=== PATIENT | female | born 1955 | race Caucasian/White ===

== ENCOUNTER 2018-07-12 05:20 | Emergency (ER) | payer MEDICAID ==
[~2018-07-12] VITALS: Ht 154.9 cm; Wt 54.5 kg
[2018-07-12 05:33] VITALS: Ht 154.9 cm; Wt 54.5 kg
[2018-07-12] MEDS ORDERED: ZANAFLEX4 MG PO (05:46)
[2018-07-12] MEDS ORDERED: VENTOLIN HFA18 GM IH (05:46)
[2018-07-12] MEDS ORDERED: BENTYL 20 MG TA20 MG PO (05:46)
[2018-07-12] MEDS ORDERED: OMEPRAZOLE20 M1 PO (05:46)
[2018-07-12] MEDS ORDERED: ZYRTEC10 MG PO (05:47)
[2018-07-12] MEDS ORDERED: FISH OIL 1,0001 CA1 PO (05:47)
[2018-07-12] MEDS ORDERED: PEPCID20 MG PO (05:47)
[2018-07-12] MEDS ORDERED: SINGULAIR10 MG PO (05:48)
[2018-07-12] MEDS ORDERED: TRICOR48 MG PO (05:48)
[2018-07-12] MEDS ORDERED: CYMBALTA60 MG (05:48)
[2018-07-12] MEDS ORDERED: CALCIUM 600 +1 EAC3 PO (05:48)
[2018-07-12] MEDS ORDERED: ANORO ELLIPTA1 EACH (05:49)
[2018-07-12] MEDS ORDERED: ZETIA10 MG PO (05:49)
[2018-07-12] MEDS ORDERED: MOBIC7.5 MG (05:49)
[2018-07-12] MEDS ORDERED: NEURONTIN 300300 MG PO (05:49)
[2018-07-12] MEDS ORDERED: FLOVENT DI50 MCG/DIS (05:50)
[2018-07-12 06:26] LABS: BASOPHILS 0.2 % (0-2); EOSINOPHILS 0.5 % (0-7); HEMATOCRIT 41.1 % (36.0-48.0); HEMOGLOBIN 13.6 g/dL (12-16); IMMATURE GRANULOCYTES 0.1 % (0-5); LYMPHOCYTES 8.1 % (15-50); MCH 28.1 pg (26.0-34.0); MCHC 33.1 g/dL (31.0-37.0); MCV 84.9 fL (80.0-100.0); MEAN PLATELET VOLUME 11.7 fL (7.4-10.4); NEUTROPHILS 85.1 % (40-80); PLATELET COUNT 180 10x3/uL (130-400); RBC 4.84 10x6/uL (4.00-5.40); RDW 12.8 % (11.5-14.5); WBC 9.4 10x3/uL (4.8-10.8)
[2018-07-12 06:48] LABS: ALBUMIN 3.7 g/dL (3.4-5.0); ANION GAP 12.2 mmol/L (8-16); BILIRUBIN - TOTAL 0.33 mg/dL (0.2-1.3); CALCIUM 9.3 mg/dL (8.5-10.1); CARBON DIOXIDE 27.5 mmol/L (21.0-32.0); CREATININE - SERUM 0.9 mg/dL (0.6-1.3); POTASSIUM - SERUM 3.7 mmol/L (3.5-5.1); PROTEIN - SERUM 7.2 g/dL (6.4-8.2)
[2018-07-12 06:58] LABS: AMORPHOUS SEDIMENT >1+ /lpf (NONE SEEN); APPEARANCE SL CLDY (CLEAR); BACTERIA MODERATE /hpf (NONE SEEN); BILIRUBIN NEGATIVE (NEGATIVE); COLOR YELLOW (YELLOW); EPITHELIAL CELLS OCC /hpf (0-5); GLUCOSE NEGATIVE (NEGATIVE); KETONE NEGATIVE (NEGATIVE); MUCUS <1+ /lpf (NONE SEEN); NITRITE NEGATIVE (NEGATIVE); PROTEIN NEGATIVE (NEGATIVE); SPECIFIC GRAVITY 1.005 (1.005-1.020); UROBILINOGEN NORMAL (NORMAL)
[2018-07-12] MEDS ORDERED: MACROBID100 MG PO (09:44)
[2018-07-12] MEDS ORDERED: KEFLEX500 MG PO (09:44)
[2018-07-12] MEDS ORDERED: FLOMAX0.4 MG PO (09:44)
[2018-07-12 10:16] VITALS: BP 126/84
[2018-08-22 09:00] VITALS: Ht 154.9 cm; Wt 54.5 kg
== END 2018-07-12 10:38 | disposition home or self-care (01) ==
LOC: D.ER 05:20
PROVIDERS: Emergency Medicine
DX: R10.12 Left upper quadrant pain (principal); N23 Unspecified renal colic; N20.1 Calculus of ureter; N39.0 Urinary tract infection, site not specified; R11.2 Nausea with vomiting, unspecified; I10 Essential (primary) hypertension; J44.9 Chronic obstructive pulmonary disease, unspecified; K21.9 Gastro-esophageal reflux disease without esophagitis

== ENCOUNTER 2018-08-22 08:15 | Day surgery (SDC) | payer MEDICAID ==
[2018-08-18 11:09] LABS: HEMATOCRIT 34.6 % (36.0-48.0); MCHC 31.8 g/dL (31.0-37.0); MCV 84.8 fL (80.0-100.0); MEAN PLATELET VOLUME 10.6 fL (7.4-10.4); RBC 4.08 10x6/uL (4.00-5.40); RDW 12.3 % (11.5-14.5)
[~2018-08-22] VITALS: Ht 152.4 cm; Wt 57.2 kg
--- NOTE | ~2018-08-22 | OP ---
PATIENT NAME: ERI ZIEGLER MEDICAL RECORD: [id number] :59 LOCATION:.[facility] ADMISSION DATE: SURGEON: SUZE CHAVARRIA MD DATE OF OPERATION: 08/22/2018 SURGEON: Suze Chavarria MD ANESTHESIA: General anesthesia by Wciho Casiano CRNA. DIAGNOSIS: History of left 4 mm distal ureteral stone. PROCEDURE: Cystoscopy, left retrograde pyelogram, left ureteroscopy, left ureteral stent insertion. FINDINGS: No radiodense stone seen on fluoroscopy. On retrograde pyelogram, no filling defects and no hydronephrosis. With ureteroscopy, no stone seen. BLOOD LOSS: None. CLINICAL HISTORY: This is a 62-year-old female who was referred by the Emergency Room with left flank pain. CT scan shows a left distal ureteral 4 mm stone. She has no previous history of kidney stones. This CT scan was done in June in the middle of the month. She continues to have episodes of pain. She does not recall seeing the stone pass out. She comes today for a left ureteroscopy and stone removal. SHE IS ALLERGIC TO KEFLEX, ESTRADIOL, BACTRIM AND PENICILLIN. 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 Prior to putting her to sleep, I wanted to obtain fluoroscopy on C-arm to see if the stone could be seen at all. When we perform fluoroscopy, no visible stone was present that was radiodense. Upon questioning, the patient said she was still having episodes of pain on the left flank and therefore, she wanted this to proceed with the ureteroscopy. DESCRIPTION OF PROCEDURE: She was then put to sleep and we put her legs in dorsal lithotomy position. She was then prepped and draped. A 21-Micronesian cystoscope with 30-degree lens was used for visualization. The patient has single ureteral orifices on each side. No bladder tumors were seen. A retrograde pyelogram was obtained by inserting a 5-Micronesian open-ended ureteral catheter into the left ureteral orifice. Diluted contrast was injected. This was followed all the way up to the renal pelvis and the calices. I did not see any signs of filling defect or hydronephrosis. Nevertheless, I decided to proceed with ureteroscopy to be absolutely sure that the stone was gone. Through the lumen of the ureteral catheter, we inserted a Sensor wire up to the renal pelvis level. Once the wire was in position, the ureteral catheter was removed entirely. Over the Sensor wire, we inserted a UroMax 18-Micronesian x 4 cm long ureteral dilation balloon. The left ureteral orifice was dilated with 12 atmospheres of pressure for a few seconds and then the balloon was deflated and removed entirely. The cystoscope was then removed, leaving the wire in place. The wire was clamped to the drapes. The rigid ureteroscope was used. Visualizing from the ureterovesical junction all the way to the UP junction, no stone was seen. She must have passed her stone recently. At this point, the ureteroscope was removed and the wire was backloaded onto the cystoscope. Over the wire, we inserted the 6-Micronesian x 22 cm ureteral stent. Once the stent was in correct position, the wire was withdrawn entirely. The distal end of the stent was pushed into the bladder using a pusher. The bladder was then emptied through the scope sheath and then the scope was removed. The string on the OPERATIVE REPORT [id number] KARLIEERIPAO MASON distal end of the scope was maintained. It was taped to the suprapubic area with a piece of Tegaderm. I will see her in followup on Tuesday to remove the stent by pulling on the string. TRANSINT:[id number] Voice Confirmation ID: [id number] DOCUMENT ID: [id number] SUZE CHAVARRIA MD at 0840 CC: [id number] DICTATION DATE: 08/22/18 1650 ANNEALING TORCH OPERATOR: 08/22/[address] [facility] [address] [place] [address]
[~2018-08-22 08:15] MED LIST: ANORO ELLIPTA1 EACH; BENTYL 20 MG TA20 MG PO; CALCIUM 600 +1 EAC3 PO; CYMBALTA60 MG; FISH OIL 1,0001 CA1 PO; FLOMAX0.4 MG PO; FLOVENT DI50 MCG/DIS; KEFLEX500 MG PO; MACROBID100 MG PO; MOBIC7.5 MG; NEURONTIN 300300 MG PO; OMEPRAZOLE20 M1 PO; PEPCID20 MG PO; SINGULAIR10 MG PO; TRICOR48 MG PO; VENTOLIN HFA18 GM IH; ZANAFLEX4 MG PO; ZETIA10 MG PO; ZYRTEC10 MG PO
[2018-08-22] MEDS ORDERED: MOBIC7.5 MG PO (08:41)
[2018-08-22] MEDS ORDERED: FLUTICASONE PRO16 GM NASAL (08:42)
[2018-08-22] MEDS ORDERED: MULTI-DAY VITAM1 TAB PO (08:44)
[2018-08-22] MEDS ORDERED: HYDROCODON-ACE1 EAC7 PO (08:45)
[2018-08-22] MEDS ORDERED: TORADOL10 MG PO (08:47)
[2018-08-22 09:00] VITALS: Ht 152.4 cm; Wt 57.2 kg
== END 2018-08-22 18:20 | disposition home or self-care (01) ==
LOC: D.OPS 08:15
PROVIDERS: Anesthesiology
DX: N20.1 Calculus of ureter (principal); Z88.1 Allergy status to other antibiotic agents; Z88.0 Allergy status to penicillin; Z88.2 Allergy status to sulfonamides; Z01.812 Encounter for preprocedural laboratory examination

== ENCOUNTER → 2018-11-07 17:58 | Outpatient (CLI) | payer MEDICAID ==
[2018-08-22 09:00] VITALS: BMI 24.6
[~2018-11-07 17:58] MED LIST changes: +FLUTICASONE PRO16 GM NASAL; +HYDROCODON-ACE1 EAC7 PO; +MOBIC7.5 MG PO; +MULTI-DAY VITAM1 TAB PO; +TORADOL10 MG PO
== END | disposition home or self-care (01) ==
LOC: D.MAMMO 15:30
DX: Z12.31 Encounter for screening mammogram for malignant neoplasm of breast (principal)

== ENCOUNTER → 2019-04-02 10:33 | Outpatient (CLI) | payer MEDICAID ==
[2018-08-22 09:00] VITALS: BMI 24.6
== END | disposition home or self-care (01) ==
LOC: D.RAD 10:33
PROVIDERS: ATTEND Internal Medicine Gastroenterology
DX: K21.9 Gastro-esophageal reflux disease without esophagitis (principal)

== ENCOUNTER 2019-05-08 08:38 | Outpatient (CLI) | payer MEDICAID ==
[2018-08-22 09:00] VITALS: BMI 24.6
== END 2019-05-08 10:05 | disposition home or self-care (01) ==
LOC: D.OPS 08:38
PROVIDERS: ATTEND Surgery
DX: K21.9 Gastro-esophageal reflux disease without esophagitis (principal)

== ENCOUNTER 2019-05-30 06:32 | Day surgery (SDC) | payer MEDICAID ==
[~2019-05-30] VITALS: Ht 154.9 cm; Wt 55.9 kg
--- NOTE | ~2019-05-30 | OP ---
PATIENT NAME: ERI ZIEGLER MEDICAL RECORD: [id number] :59 LOCATION:[facility] ADMISSION DATE: SURGEON: SUZE WOODARD MD DATE OF OPERATION: 05/30/2019 Assistance Note I assisted Dr. TRAVON Paulson with the laparoscopic hiatal hernia repair and laparoscopic Andrew fundoplication. I was present from the initial insertion of trocar and instruments as well as the final closure. My involvement in the operation included, but was not limited to, insertion of the Veress needle and insufflation of the abdomen. Insertion of two of the trocars. Assistance with the Gary retractor. Taking down the short gastrics with the Harmonic scalpel. Irrigating and aspirating. Some retrogastric dissection. Retracting the esophagus. Some blunt dissection up in the mediastinum. Suture retraction. Running some of the camera. Final closure of several of the trocar sites. The complexity of the procedure necessitated having two attending surgeons present during the procedure. TRANSINT:[id number] Voice Confirmation ID: [id number] DOCUMENT ID: [id number] SUZE WOODARD MD CC: [id number] DICTATION DATE: 05/30/191816 ASTRONOMY INSTRUCTOR: 05/30/19 221 [facility] SDC 05/31/19 [facility] [address] [place] [id number]
[~2019-05-30 06:32] MED LIST changes: +IPRATROPIUM SPR 0.0 NASAL; +NASACORT10.8 ML NASAL
[2019-05-30 06:59] LABS: HEMATOCRIT 38.6 % (36.0-48.0); HEMOGLOBIN 12.3 g/dL (12-16); MCH 25.7 pg (26.0-34.0); MCHC 31.9 g/dL (31.0-37.0); MCV 80.8 fL (80.0-100.0); MEAN PLATELET VOLUME 12.5 fL (7.4-10.4); RBC 4.78 10x6/uL (4.00-5.40); RDW 14.9 % (11.5-14.5); WBC 3.7 10x3/uL (4.8-10.8)
[2019-05-30] MEDS ORDERED: IPRATROPIUM SPR 0.0 (07:26)
[2019-05-30] MEDS ORDERED: CARBINOXAMIN (07:27)
[2019-05-30 07:29] VITALS: BP 140/71; BMI 23.4
[2019-05-30 11:29] VITALS: BP 130/90
--- NOTE | 2019-05-30 15:49 | NUR ---
PT LYING IN BED DAUGHTER AND GRANDCHILDREN AT BEDSIDE, PT LAP SITES ARE CLEAN DRY AND INTACT. NO NEEDS VOICED, CONTINUE WITH PLAN OF CARE
--- NOTE | 2019-05-30 16:14 | NUR ---
PT INQUIRED ON PAIN MEDICATION FOR HER NECK WHICH SHE TAKES NORCO 5 AT HOME WELL HER ZANAFLEX. ADVISED PT MED REC HAS BEEN COMPLETED AND WHEN DR WOODARD MAKES ROUNDS THIS EVENING WE WILL INQUIRE ON RESTARTING HOME MEDS, NO OTHER NEEDS VOICED
[2019-05-30 16:30] VITALS: BP 130/90; Ht 154.9 cm; Wt 55.9 kg
[2019-05-30 20:00] VITALS: BP 117/63
--- NOTE | 2019-05-30 20:00 | NUR ---
ASSESSMENT PER FLOWSHEET. LAP SITES TO ABDOMEN X6 C/D/I. IV PATENT LT HAND OF D5KR W/10MEQ KCL AT 125CC'S/HR. SITE CLEAR SENIOR MICROSOFT CONSULTANT OF MORPHINE IN USE WITH SETTINGS AT 1MG Q10MIN W/10MG Q4H L/O. DAUGHTER IN ROOM. [place] TO BEDSIDE DRAINAGE.
--- NOTE | 2019-05-30 22:00 | NUR ---
MEDS GIVEN PER JAN. REQUESTING MED FOR BREAKTHROUGH PAIN AND MUSCLE RELAXOR. TORADOL 30MG IVP GIVEN FOR PAIN AND ZANAFLEX 4MG PO GIVEN FOR SPASMS.
--- NOTE | 2019-05-31 | NUR ---
RESTING QUIETLY DENIES NEEDS. SR UP X2 CALL LIGHT WITHIN REACH.
--- NOTE | 2019-05-31 02:21 | NUR ---
EYES CLOSED RESPIRATIONS WITH EASE AND UNLABORED.
[2019-05-31 04:00] VITALS: BP 134/67
--- NOTE | 2019-05-31 04:15 | NUR ---
AMBULATED WITH 2 PEOPLE IN HALLWAY WALLED AROUND NURSE'S STATION.
--- NOTE | 2019-05-31 06:37 | NUR ---
RESTING QUIETLY. MEDS GIVEN PER JAN.
[2019-05-31 06:49] LABS: BASOPHILS 0.4 % (0-2); EOSINOPHILS 2.7 % (0-7); HEMATOCRIT 36.8 % (36.0-48.0); HEMOGLOBIN 11.4 g/dL (12-16); IMMATURE GRANULOCYTES 0.2 % (0-5); LYMPHOCYTES 20.6 % (15-50); MCH 25.4 pg (26.0-34.0); MEAN PLATELET VOLUME 12.5 fL (7.4-10.4); MONOCYTES 9.4 % (2-11); NEUTROPHILS 66.7 % (40-80); PLATELET COUNT 155 10x3/uL (130-400); RBC 4.49 10x6/uL (4.00-5.40); RDW 15.1 % (11.5-14.5)
[2019-05-31 06:53] LABS: ALKALINE PHOSPHATASE 55 U/L (46-116); ALT (SGPT) 63 U/L (10-68); CALC OSMOLALITY 278 mosm/kg (275-300); CALCIUM 8.5 mg/dL (8.5-10.1); CARBON DIOXIDE 28.8 mmol/L (21.0-32.0); CHLORIDE - SERUM 107 mmol/L (98-107); CREATININE - SERUM 0.7 mg/dL (0.6-1.3); GLUCOSE 115 mg/dL (74-106); POTASSIUM - SERUM 4.4 mmol/L (3.5-5.1); PROTEIN - SERUM 6.2 g/dL (6.4-8.2); SODIUM 141 mmol/L (136-145); UREA NITROGEN 5 mg/dL (7-18); eGFR NON AFRICAN AMERICAN 90 mL/min (90-120)
[2019-05-31 06:56] LABS: WBC 4.8 10x3/uL (4.8-10.8)
--- NOTE | 2019-05-31 07:58 | NUR ---
PT HAS C/O DUNAWAY ALL NOGHT PAIN AT AN 8, WAS ADVISED BY PM NURSE SHE DOES NOT HAVE ANYTHING FOR DUNAWAY BUT JUST TORADOL, ORDERED TYLENOL FOR PT Q6 PRN AND ADMINISTERED THIS MORNING AFTER ROUNDS, PT TO BE DC TODAY AFTER GASTOGRAFIN SWALLLOW STUDY. PULLING [place] TO ENSURE PT ABLE TO VOID BEFORE DC. CONTINUE WITH PLAN OF CARE
[2019-05-31 08:47] VITALS: BP 112/54
[2019-05-31] MEDS ORDERED: HYDROCODON-ACE1 EAC7 PO (11:09)
== END 2019-05-31 12:30 | disposition home or self-care (01) ==
LOC: D.OPS 06:32 → D.MS 10:39 → D.OPS 12:00
PROVIDERS: Anesthesiology; Surgery; ATTEND Surgery
DX: K21.9 Gastro-esophageal reflux disease without esophagitis (principal); K44.9 Diaphragmatic hernia without obstruction or gangrene

== ENCOUNTER 2019-12-09 17:48 | Observation (INO) | payer BC ==
--- NOTE | ~2019-12-09 | HEMODYNAMI ---
PATIENT:ERI ZIEGLER MEDICAL RECORD: [id number] : 59 [facility] ADMISSION DATE: 12/09/19 Generatedon:12/10/201911:04 Patient name: ERI ZIEGLER Patient #: [id number] SSN: : 1955 Date of study: 12/10/2019 Page: Of Hemodynamic Procedure Report Patient Data Patient Demographics Procedure consent was obtained First Name: ERI Gender: Female Last Name: KARLIE : 1955 Middle Initial: MARLON Age: 64 year(s) Patient #: [id number] Race: Unknown Additional ID: [id number] Contact details [address]: [address] [place] [address] [place] State: [place] City: [place] Zip code: [address] Past Medical History Allergies Allergen Reaction Date Comments Reported Other 12/10/2019 cephalaxin,pcn,stradiol, allergy sulfa, trimethoprim Admission Admission Data Admission Date: 12/09/2019 Admission Time: 20:41 Arrival Date: 12/10/2019 Arrival Time: 0:00 Admit Source: Other Insurance Payor: Private Room #: D.[id number] health insurance Height (in.): 61 BSA: 1.47 (m2) Height (cm.): 154.94 BMI: 20.78 (kg/m2) Weight (lbs.): 110 Weight (kg.): 49.9 Lab Results Lab Result Date: 12/10/2019 Lab Result Time: 0:00 Biochemistry Name Units Result Min Max BUN mg/dl 11 --(-*--)-- 7 18 CK-MB ng/ml 0.9 --(*---)-- 0 3.6 Creatinine mg/dl 0.9 --(-*--)-- 0.6 1.3 eGFR ml/min 67.41361 *-(----)-- 90 120 NONAFRICAN Troponin l ng/ml 0.017 --(-*--)-- 0 0.06 CBC Name Units Result Min Max Hematocrit % 47.6 --(-*--)-- 42 54 Hemoglobin g/dl 15.4 --(-*--)-- 13.5 17.5 Procedure Procedure Types Cath Procedure Diagnostic Procedure [facility] w/Coronaries Procedure Description Procedure Date Procedure Date: 12/10/2019 Procedure Start Time: 10:53 Procedure End Time: 11:03 Procedure Staff Name Function Chuck Mckenna MD Performing Physician Sybil Oakley RT Monitor Latosha Rosario RN Nurse India Jennings RT Scrub Indication Chest pain Procedure Data Cath Procedure Fluoroscopy Diagnostic fluoroscopy Total fluoroscopy Time: 0.9 time: 0.9 min min Diagnostic fluoroscopy Total fluoroscopy dose: 106 dose: 106 mGy mGy Contrast Material Contrast Material Type Amount (ml) Isovue 370 36 Entry Location Entry Primary Successful Side Size Upsize Upsize Entry Closure Succes sful Closure Location (Fr) 1 (Fr) 2 (Fr) Remarks Device Remarks Femoral Right 5 Fr Exoseal artery Estimated blood loss: 5 ml Diagnostic catheters Device Type Used For End Catheter Placement MULTIPACK JL 4.0 5Fr Procedure catheter MULTIPACK 3DRC 5Fr Procedure catheter MULTIPACK Pigtail 5 Fr Procedure catheter Procedure Complications No complications Procedure Medications Medication Administration Route Dosage 0.9% NaCl I.V. 100 ml/hr Oxygen etCO2 Nasal cannula 2 l/min Lidocaine 2% added to field 20 Heparin Flush Bag added to field 2 bags (1000units/500ml NS) Versed I.V. 2 mg Fentanyl I.V. 50 mcg Fentanyl I.V. 50 mcg Hemodynamics Rest BSA: 1.47 (m2) HGB: 15.4 (g/dl) O2 Consumption: Estimated: 154.7 (ml/min) O2 Con sumption indexed: Estimated:105.24 (ml/min/m) Heart Rate: 99 (bpm) Pressure Samples Time Site Value (mmHg) Purpose Heart Use Rate(bpm) 10:57 LV 110/7,8 Snapshot 58 Gradients Valve Time Site Site Mean SEP/DFP Peak To Heart Use 1 2 (mmHg) (sec/min) Peak Rate (mmHg) (bpm) Aortic 10:58 LV AO 114 Snapshots Pre Cath Intra NCS Post Cath Vital Signs Time Heart Resp SPO2 etCO2 NIBP (mmHg) Rhythm Pain Sedation Rate (ipm) (%) (mmHg) Status Level (bpm) 10:19:33 99 11 100 28 135/81(106) NSR 0 (11) 10(A) , No pain 10:23:43 100 12 100 31.8 125/79(111) NSR 0 (11) 10(A) , No pain 10:27:51 95 11 100 40.1 125/76(93) NSR 0 (11) 10(A) , No pain 10:31:59 100 11 100 40.9 134/71(96) NSR 0 (11) 10(A) , No pain 10:36:11 103 10 97 17 113/70(90) ST 0 (11) 10(A) , No pain 10:40:17 101 10 97 31 116/67(100) ST 0 (11) 10(A) , No pain 10:44:22 104 13 97 45.4 112/69(87) ST 0 (11) 10(A) , No pain 10:48:28 102 12 97 37.1 121/69(95) ST 0 (11) 10(A) , No pain 10:52:36 103 10 98 28.7 113/70(87) ST 0 (11) 10(A) , No pain 10:56:42 111 16 99 44.6 123/66(86) ST 0 (11) 10(A) , No pain 11:00:52 108 10 98 38.6 112/66(87) ST 0 (11) 10(A) , No pain Medications Time Medication Route Dose Verified Delivered Reason Notes Eff ectiveness by by 10:32:37 0.9% NaCl I.V. 100 Chuck Reina used for ml/hr ClarisaJackson Rosario procedure MD LUONG 10:32:43 Oxygen etCO2 2 Chuck Cotoa used for Nasal l/min [facility] procedure cannula MD LUONG 10:32:48 Lidocaine 2% added 20ml Chuck Woods for local to vial [facility] anesthetic field MD MONTIEL 10:32:52 Heparin Flush added 2 Chuck Woods used for Bag to bags [facility] procedure (1000units/500ml field MD MONTIEL NS) 10:49:02 Fentanyl I.V. 50 Chuck Cotoa for mcg [place] [facility] sedation MD LUONG 10:49:53 Versed I.V. 2 mg Chuck C[address]a for [facility] Ros[facility] sedation MD RN 10:53:58 Fentanyl I.V. 50 Chuck Reina for [facility] Rosario sedation cancer program director Log Time Note 10:06:53 Diagnostic Cath Status : Urgent 10:07:12 Indication : Chest pain 10:07:18 Procedure Status Urgent Heart Cath (IP). 10:07:21 India Jennings RT(R) sent for patient. Start room use. 10:07:23 Time tracking: Regular hours (M-F 7:00 - 5:00) 10:07:28 Plan of Care:Hemodynamics will remain stable., Cardiac rhythm will remain stable., Comfort level will be maintained., Respiratory function will remain adequate., Patient/ family verbilizes understanding of procedure., Procedure tolerated without complication., Recovers from procedure without complications.. 10:07:39 ACC Patient presents with Stable Angina CCS Anginal Class 2--Slight limitation of ordinary activity. 10:12:18 Patient received from Med II to CCL 2 Alert and oriented. Tansferred to table in Supine position. 10:12:21 Signed procedure consent form obtained from patient. 10:12:22 Warm blankets applied, and india hugger turned on for patient comfort. 10:12:22 Correct patient and procedure confirmed by team. 10:12:23 ECG and BP/O2 sat monitors applied to patient. 10:12:39 Family in waiting room. 10:12:41 Patient NPO since Midnight. 10:12:42 Pre-procedure instructions explained to patient. 10:12:43 Pre-op teaching completed and patient verbalized understanding. 10:13:28 Patient allergic to Other allergycephalaxin,pcn,stradiol, sulfa, trimethoprim 10:13:32 Is the patient allergic to Iodine/contrast media? No. 10:16:26 Arrival Date: 12/10/2019 12:00:00 AM 10:16:27 Admit Source: Other 10:16:29 Insurance Payor : Private health insurance 10:16:49 Patient Height : 61 inches 10:16:54 Patient Weight : 110 lbs 10:18:17 Risk of Mortality: 0.6 10:18:20 Risk of blood transfusion: 4.4 10:18:24 Risk of JENNIFER: 3.6 10:18:25 Alarms reviewed by R. N. 10:18:26 Sharps counted by scrub and verified by R.N. 10:18:29 Vital chart was started 10:18:35 Was the patient premedicated? Yes 10:18:37 Is patient on blood thinner?No 10:18:42 Patient diabetic? No. 10:18:46 Patient not . Patient is over age 55. 10:18:46 ----Pre-sedation anethsthesia assessment.---- 10:18:50 Previous problem with sedation/anesthesia? No ? 10:18:52 Snore? Yes 10:18:53 Sleep apnea? Yes 10:18:55 Deviated septum? No 10:18:56 Opens mouth fully? Yes 10:18:57 Sticks out tongue? Yes 10:19:07 Airway obstruction? Yes asthma, bronchitis 10:19:10 Dentures? No ? 10:19:19 Pre procedure: right dorsailis pedis pulse 2+ Normal; easily identifiable; not easily obliterated 10:19:22 Patient pain scale 0/10 ?. 10:19:41 IV patent on arrival in left antecubital with 0.9% NaCl at [facility]. 10:20:59 Lab Result : BUN 11 mg/dl 10:20:59 Lab Result : Creatinine 0.9 mg/dl 10:20:59 Lab Result : CK-MB 0.9 ng/ml 10:20:59 Lab Result : Troponin l 0.017 ng/ml 10:20:59 Lab Result : eGFR NONAFRICAN 67.58286 ml/min 10:20:59 Lab Result : Hemoglobin 15.4 g/dl 10:20:59 Lab Result : Hematocrit 47.6 % 10:21:04 Modified Lenny's test Ulnar < 7 seconds 10:21:09 Lab results completed and on chart. 10:21:13 Stress Test: no; N/A ? 10:21:17 Right Radial & Right Groin area was prepped with chlora-prep and draped in sterile fashion 10:21:22 Baseline sample Acquired. 10:21:26 Rhythm: sinus rhythm 10:21:27 Full Disclosure recording started 10:21:34 Use device set Radial Dx or PCI 10:21:36 ACIST Syringe (50654) opened to sterile field. 10:21:37 Medline Cath Pack ([id number]) opened to sterile field. 10:21:38 Bag Decanter () opened to sterile field. 10:21:38 ACIST Hand Control (86792) opened to sterile field. 10:21:39 ACIST Manifold (66603) opened to sterile field. 10:21:42 EMERALD Guide Wire (828-700) opened to sterile field. 10:32:37 0.9% NaCl 100 ml/hr I.V. was administered by Latosha Rosario RN; used for procedure; Verbal order read back and verified. 10:32:43 Oxygen 2 l/min etCO2 Nasal cannula was administered by Latosha Rosario RN; used for procedure; Verbal order read back and verified. 10:32:48 Lidocaine 2% 20ml vial added to field was administered by Chuck Mckenna MD; for local anesthetic; Verbal order read back and verified. 10:32:52 Heparin Flush Bag (1000units/500ml NS) 2 bags added to field was administered by Chuck Mckenna MD; used for procedure; Verbal order read back and verified. 10:38:57 Zero performed for pressure channel P1 10:40:24 Zero performed for pressure channel P1 10:48:59 --------ALL STOP TIME OUT------ 10:49:00 Final Timeout: patient, procedure, and site verified with staff and physician. All members of the team are in agreement. 10:49:02 Fentanyl 50 mcg I.V. was administered by Latosha Rosario RN; for sedation; Verbal order read back and verified. 10:49:11 Right Radial & Right Groin site verified by team. 10:49:15 Fire Safety Assessment: A--An alcohol-based skin anteseptic being used preoperatively., C--Open oxygen or nitrous oxide is being used., D--An ESU, laser, or fiber-optic light is being used. 10:49:19 Physical assessment completed. ASA score P 2 - A patient with mild systemic disease as per Chuck Mckenna MD. 10:49:22 2) 60-89 Mildly reduced kidney function, and other findings (as for stage 1) point to kidney disease. 10:49:27 Maximum allowable contrast dose (3.7 X eGFR X 0.75)186 ml. 10:49:31 Sedation plan: IV Moderate Sedation Medication:Versed, Fentanyl 10:49:53 Versed 2 mg I.V. was administered by Latosha Rosario RN; for sedation; Verbal order read back and verified. 10:51:58 Use device set Multipack Set 10:52:08 SHEATH 5FR Virgilina ([id number]) opened to sterile field. 10:52:10 DIAGNOSTIC Multipack 5Fr catheter set (AL0180) opened to sterile field. 10:52:17 Procedure started. 10:53:23 Right groin area was prepped with chlora-prep and draped in sterile fashion 10:53:43 GROIN INSTEAD OF RADIAL DUE TO SMALL STATURE AND PULSE WEAK. 10:53:49 Local anesthetic to right femoral artery with Lidocaine 2% by Chuck Mckenna MD.INITIAL ACCESS ONLY 10:53:58 Fentanyl 50 mcg I.V. was administered by Latosha Rosario RN; for sedation; Verbal order read back and verified. 10:54:05 A 5 Fr sheath was inserted into the Right Femoral artery 10:54:14 A MULTIPACK JL 4.0 5Fr catheter was advanced over the wire and used for Procedure. 10:54:43 LCA angiography performed. 10:55:24 Catheter removed. 10:55:34 A MULTIPACK 3DRC 5Fr catheter was advanced over the wire and used for Procedure. 10:56:19 RCA angiography performed. 10:56:28 Catheter removed. 10:56:34 A MULTIPACK Pigtail 5 Fr catheter was advanced over the wire and used for Procedure. 10:57:41 Injector settings: Ml/sec: 10, Volume: 20, 10:57:43 LV hemodynamics recorded. 10:57:44 LV gram done using MOTA 10:57:50 EF : 55 % 10:58:13 Catheter removed. 10:58:19 EXOSEAL 5Fr (EX500) opened to sterile field. 10:58:27 Sheath removed intact; hemostasis achieved with Exoseal to the Right Femoral artery. 10:58:54 Procedure ended.(Physican Out) 10:59:06 Fluoroscopy time 00.90 minutes. 10:59:17 Fluoroscopy dose: 106 mGy 10:59:17 Flurop Dose total: 106 10:59:23 Dose Area Product 6659 mGy/cm. 10:59:26 Contrast amount:Isovue 370 36ml. 10:59:29 Maximum allowable dose exceeded? No. 10:59:30 Sharps counted by scrub and verified by R.N. 10:59:36 Post-op/insertion site Right Femoral artery dressed using a 4 x 4 and Tegaderm. 10:59:42 Post right femoral artery:stable, clean and dry, unstable 10:59:44 Post Procedure Pulses reassessed and unchanged 10:59:46 Post procedure: right dorsailis pedis pulse 2+ Normal; easily identifiable; not easily obliterated. 10:59:49 Post-procedure physical assessment completed. ASA score P 2 - A patient with mild systemic disease as per Chuck Mckenna MD. 10:59:52 Post procedure rhythm: unchanged. 10:59:56 Estimated blood loss: 5 ml 10:59:57 Post procedure instruction explained to patient.Patient verbalizes understanding. 10:59:58 Patient needs reinforcement of post procedure teaching. 11:00:52 Procedure and supply charges have been captured, reviewed, submitted and are correct. 11:01:46 Procedure Complication : No complications 11:01:51 [facility] Findings: mild to moderate CAD (<70%) 11:01:52 Operative report dictated upon procedure completion. 11:01:52 See physician's report for complete and final results. 11:01:54 Report given to Med II. 11:01:59 Patient transfered to Med II with Bed. 11:03:07 Vital chart was stopped 11:03:10 Procedure ended. 11:03:10 Full Disclosure recording stopped Device Usage Item Name Manufacture Quantity Catalog Hospital Part Current Minimal L ot# / Number Charge Number Stock Stock Serial# Code ACIST Acist 1 21355 806554 000661 585007 20 Syringe Medical (56237) Systems Inc Medline Medline 1 [id number] 254698 70254 201611 5 Cath Pack ([id number]) Bag Microtek 1 911220 37501 647276 5 Decanter Medical Inc. () ACIST Hand Acist 1 34160 215944 511747 742204 5 Control Medical (83478) Systems Inc ACIST Acist 1 27730 131535 959166 242676 5 Manifold Medical (91048) Systems Inc EMERALD Cardinal 1 502-455 560795 294042 143714 5 Guide Wire Health (502-455) SHEATH 5FR Terumo 1 RBH599 806026 453426 645398 5 Virgilina (FTQ131) DIAGNOSTIC Cardinal 1 YQ0820 137824 93405 231196 30 Multipack Health 5Fr catheter set (HM3214) MULTIPACK Cardinal 1 308243 5 JL 4.0 5Fr Health catheter MULTIPACK Cardinal 1 864133 5 3DRC 5Fr Health catheter MULTIPACK Cardinal 1 465740 5 Pigtail 5 Health Fr catheter EXOSEAL 5Fr Cardinal 1 EX500 681598 156631 526844 10 (EX500) Health Signature Audit [place] Stage Time Signature Unsigned Intra-Procedure 12/10/2019 Sybil Oakley 11:03:25 AM RT(R); Latosha Rosario RN; Chuck Mckenna MD Signatures Performing Physician : Signature : Chuck Mckenna MD Date : Time : Monitor : Sybil Oakley Signature : RT Date : Time : Nurse : Latosha Rosario RN Signature : Date : Time : [address] [place] [address]
--- NOTE | ~2019-12-09 | CN ---
PATIENT NAME:ERI ZIEGLER MEDICAL RECORD: [id number] : 59 LOCATION:D. D.2109 ADMIT DATE: 12/09/19 ACCOUNT: [id number] CONSULTING PHYSICIAN: CHANTALE LAZARO MD REFERRING PHYSICIAN: MARY SERRATO MD DATE OF CONSULTATION: 12/10/2019 HISTORY OF PRESENT ILLNESS: A 64-year-old female with no known history of coronary artery disease, strong family history of coronary artery disease, history of hyperlipidemia, obstructive pulmonary disease, 3-week history of chest tightness and pressure, progressive pulmonary class III symptomatology any type of exercise, had rest symptomology yesterday, relieved with nitroglycerin in the ER. She is also been treated for bronchitis recently. We are asked to see her concerning her cardiovascular status. PAST MEDICAL HISTORY: Includes: 1. History of obstructive pulmonary disease. 2. Dyslipidemia. MEDICATIONS: Include Singulair 10 mg p.o. at bedtime, Symbicort 2 puffs b.i.d., Meloxicam 7.5 daily, [place] 5/325 q.6 p.r.n., Neurontin 300 t.i.d., Cymbalta 60 daily, TriCor 40 mg p.o. daily, Zetia 10 mg p.o. daily, Zanaflex 4 mg q.6 p.r.n. ALLERGIES: PENICILLIN, KEFLEX, AND BACTRIM. SOCIAL HISTORY: Nonsmoker, nondrinker. Does exercise on a regular basis up until prior illness this been over the past 3 weeks. REVIEW OF SYSTEMS: The patient reports easy bruising but reports no swollen glands. The patient reports no fever, no night sweats, no significant weight gain, no significant weight loss. No significant exercise tolerance. The patient reports no dry eyes, no irritation, no vision change. Patient reports no difficulty hearing and no ear pain. Patient reports no frequent nose bleeds or nose and sinus problems. Patient reports on arm pain on exertion. No shortness of breath while lying down. No history of heart murmur. Patient reports no cough, no wheezing or coughing up blood. Patient reports no abdominal pain, no vomiting. Normal appetite. No diarrhea and not vomiting blood. No nausea and no constipation. Patient reports no incontinence. No difficulty urinating. No hematuria. No increased frequency. Patient reports no muscle aches. No weakness, no arthralgias, no back pain. No swelling of the extremities. Patient reports no abnormal mole, no jaundice, no rashes. Reports no loss of consciousness. No weakness and no numbness. No seizures, dizziness, or headaches. The patient reports no depression, no sleep disturbance, feeling safe in a relationship and no alcohol abuse. Patient reports on fatigue. Reports no runny nose or sinus pressure. No itching, no hives, and no frequent sneezing. PHYSICAL EXAMINATION: GENERAL: Pleasant female, in no acute distress, appears stated age. VITAL SIGNS: Blood pressure 119/75, pulse 87 and regular. HEENT: Normocephalic, atraumatic. NECK: No JVD or bruit. HEART: Regular, II/ systolic ejection murmur. LUNGS: Good air excursion. ABDOMEN: Soft, nontender. CONSULT REPORT [id number] ERI ZIEGLER EXTREMITIES: Pulses 2+. There is no edema. IMPRESSION: Acute coronary syndrome, class III symptoms at this point, multiple risk factors. Angiography, intervention based on above. TRANSINT:[id number] Voice Confirmation ID: [id number] DOCUMENT ID: [id number] CHANTALE LAZARO MD CC: [id number] DICTATION DATE: 12/10/19 0856 HIGH SCHOOL SPORTS COACH: 12/10/19 1558 ADM IN [facility] [address] [place] [address]
--- NOTE | ~2019-12-09 | OP ---
PATIENT NAME: ERI ZIEGLER MEDICAL RECORD: [id number] :59 LOCATION:D.M2 D.2109 ADMISSION DATE:12/09/19 SURGEON: CHANTALE LAZARO MD DATE OF OPERATION: 12/10/2019 PROCEDURES: Left heart catheterization, selective coronary angiography, right femoral artery approach. CATHETERS: A 5-Divehi sheath, 5/4 left and right Omari, 5/4 pig. The procedure was well tolerated. The patient was returned to the burgess. Sheath was removed. ExoSeal device was placed. FINDINGS: Left ventriculography in 30-degree MOTA view, normal wall motion and normal systolic function. CORONARY ANATOMY: LEFT MAIN: Left main is free of disease. LAD: Free of disease in the diagonal as is diagonal system. CIRCUMFLEX: Left dominant system. Left circumflex gives rise to PDA and is free of disease. RIGHT CORONARY ARTERY: Rudimentary. IMPRESSION: Normal left ventricular systolic function, normal coronary anatomy. TRANSINT:[id number] Voice Confirmation ID: [id number] DOCUMENT ID: [id number] CHANTALE LAZARO MD CC: [id number] DICTATION DATE: 12/10/19 1153 EVIDENCE CUSTODIAN: 12/10/19 1849 ADM IN [facility] [address] [place] [address]
[~2019-12-09 17:48] MED LIST changes: +CARBINOXAMIN; +IPRATROPIUM SPR 0.0
[2019-12-09 18:25] LABS: BASOPHILS 0.1 % (0-2); EOSINOPHILS 0.9 % (0-7); HEMATOCRIT 47.6 % (36.0-48.0); HEMOGLOBIN 15.4 g/dL (12-16); IMMATURE GRANULOCYTES 0.3 % (0-5); LYMPHOCYTES 32.4 % (15-50); MCH 28.2 pg (26.0-34.0); MCHC 32.4 g/dL (31.0-37.0); MCV 87.2 fL (80.0-100.0); MEAN PLATELET VOLUME 11.8 fL (7.4-10.4); MONOCYTES 8.2 % (2-11); NEUTROPHILS 58.1 % (40-80); RBC 5.46 10x6/uL (4.00-5.40); RDW 13.6 % (11.5-14.5)
[2019-12-09 18:31] LABS: PLATELET COUNT 256 10x3/uL (130-400)
[2019-12-09 18:50] LABS: APTT 24.2 SECONDS (22.8-39.4); INR 0.87 (0.85-1.17); PROTIME 11.8 SECONDS (11.6-15.0)
[2019-12-09 18:53] LABS: CALC OSMOLALITY 287 mosm/kg (275-300); CALCIUM 9.6 mg/dL (8.5-10.1); CARBON DIOXIDE 26.1 mmol/L (21.0-32.0); CHLORIDE - SERUM 106 mmol/L (98-107); CREATININE - SERUM 0.9 mg/dL (0.6-1.3); GLUCOSE 103 mg/dL (74-106); POTASSIUM - SERUM 3.7 mmol/L (3.5-5.1); SODIUM 145 mmol/L (136-145); UREA NITROGEN 11 mg/dL (7-18); eGFR NON AFRICAN AMERICAN 67 mL/min (90-120)
[2019-12-09 19:09] LABS: ALKALINE PHOSPHATASE 80 U/L (46-116); ALT (SGPT) 25 U/L (10-68); BILIRUBIN - TOTAL 0.17 mg/dL (0.2-1.3); CKMB 0.9 U/L (0.0-3.6); CREATINE KINASE 72 UL (21-215); PRO BNP 37 pg/mL (0-125); PROTEIN - SERUM 8.1 g/dL (6.4-8.2)
[2019-12-09 19:13] LABS: TROPONIN-I < 0.017 ng/mL (0.000-0.060)
[2019-12-09 22:07] VITALS: BP 154/990
--- NOTE | 2019-12-09 22:30 | NUR ---
PT ARRIVED TO ROOM FROM ER. DAUGHTER PRESENT AT BEDSIDE. ASSESSMENT COMPLETE. CPAP FROM HOME IN ROOM WITH PT. DENIES CHEST PAIN AT THIS TIME. CALL LIGHT IN REACH. WILL MONITOR.
[2019-12-09] MEDS ORDERED: SYMBICORT 16010.2 GM INH (22:53)
[2019-12-10 02:39] VITALS: BP 153/68
[2019-12-10 04:30] VITALS: BP 99/48
--- NOTE | 2019-12-10 07:59 | NUR ---
PT RECEIVED SITTING UP IN BED, DR LAZARO IN ROOM. COMPLAINTS OF HEADACHE, MEDS ORDERED. NPO FOR POSSIBLE CATH.
[2019-12-10 08:09] VITALS: BP 119/75
[2019-12-10 09:40] LABS: BASOPHILS 0.2 % (0-2); EOSINOPHILS 1.4 % (0-7); HEMATOCRIT 44.5 % (36.0-48.0); HEMOGLOBIN 14.4 g/dL (12-16); IMMATURE GRANULOCYTES 0.3 % (0-5); LYMPHOCYTES 24.9 % (15-50); MCH 28.3 pg (26.0-34.0); MCHC 32.4 g/dL (31.0-37.0); MCV 87.6 fL (80.0-100.0); MEAN PLATELET VOLUME 11.2 fL (7.4-10.4); MONOCYTES 8.3 % (2-11); NEUTROPHILS 64.9 % (40-80); PLATELET COUNT 212 10x3/uL (130-400); RBC 5.08 10x6/uL (4.00-5.40); RDW 13.7 % (11.5-14.5); WBC 6.5 10x3/uL (4.8-10.8)
[2019-12-10 10:02] LABS: ALT (SGPT) 21 U/L (10-68); CALC OSMOLALITY 283 mosm/kg (275-300); CALCIUM 8.8 mg/dL (8.5-10.1); CARBON DIOXIDE 29.1 mmol/L (21.0-32.0); CHLORIDE - SERUM 105 mmol/L (98-107); CHOL - HDL RATIO 2.4 ratio (2.3-4.1); CHOLESTEROL, TOTAL 212 mg/dL (0-200); CREATININE - SERUM 0.7 mg/dL (0.6-1.3); GLUCOSE 119 mg/dL (74-106); HDL CHOLESTEROL 87 mg/dL (32-96); LDL CHOLESTEROL 109 mg/dL (0-100); LDL-HDL RATIO 1.3 ratio (1.5-3.5); SODIUM 142 mmol/L (136-145); TRIGLYCERIDE 80 mg/dL (30-200); UREA NITROGEN 12 mg/dL (7-18); eGFR NON AFRICAN AMERICAN 90 mL/min (90-120)
--- NOTE | 2019-12-10 11:25 | NUR ---
PT TO ROOM POST CATH ON BED, FAMILY IN ROOM. DRESSING TO RIGHT GROIN IS CLEAN AND DRY. SHE IS DROWSY BUT AROUSES. IVF RUNNING AT 200 ML/HR. INSTRUCTED TO LIE FLAT FOR 2 HOURS.
[2019-12-10 11:32] VITALS: BP 115/54
--- NOTE | 2019-12-10 13:37 | NUR ---
PT PAST 2 HOUR PERIOD LYING FLAT IN BED. DRESSING TO GROIN STILL CLEAN ANDDRY. ASSIST TO BATHROOM TO VOID. LUNCH IN ROOM NOW.
[2019-12-10 15:22] VITALS: BP 113/60
[2019-12-10] MEDS ORDERED: IPRAT-ALBUT 0.5-3 ML INH (17:35)
[2019-12-10] MEDS ORDERED: MEDROL DOSE PACK4 MG PO (17:37)
[2019-12-10] MEDS ORDERED: DIFLUCAN150 MG PO (17:37)
--- NOTE | 2019-12-10 18:52 | NUR ---
PT DISCHARGE INSTRUCTIONS REVIEWED AND IV REMOVED. TELEMETRY REMOVED. PT TRANSPORTED VIA WHEELCHAIR OUT TO CAR FOR RIDE HOME.
--- NOTE | 2019-12-11 08:37 | MORECARE ---
CASE MANAGEMENT DISCHARGE SUMMARY PATIENT: ERI ZIEGLER UNIT: [id number] ADM DATE: 12/09/19 AGE: 64 : 59 SEX: F ROOM/BED: D.2110 AUTHOR: TORO EDMOND PHYSICIAN: REFERRING PHYSICIAN: MARY SERRATO MD DATE OF SERVICE: 12/11/19 Discharge Plan Patient Name: ERI ZIEGLER [facility] [facility] 1955 Planned Disposition: Home Anticipated Discharge Date: 12/10/19 Discharge Date: 12/10/2019 Expected LOS: 1 Initial Reviewer: [id number] Initial Review Date: 12/11/2019 Generated: 12/11/19 9:36 am Patient Name: ERI ZIEGLER Page [id number] at 0837 All edits/amendments must be made on the electronic document DICTATION DATE: 12/11/19 0836 MEMBER SERVICE SPECIALIST: DEXTER 12/11/19 0836 RPT#: [id number] DC DATE:12/10/19 STATUS: DIS IN [facility] [address] [place] [address] END OF REPORT
== END 2019-12-10 18:54 | disposition home or self-care (01) ==
LOC: D.ER 17:48 → OBSVTIME 20:41 → D.M2 20:41
PROVIDERS: Emergency Medicine; Internal Medicine Interventional Cardiology; ADMIT Family Medicine; ATTEND Family Medicine
DX: I24.9 Acute ischemic heart disease, unspecified (principal); J43.9 Emphysema, unspecified; R07.9 Chest pain, unspecified; R06.00 Dyspnea, unspecified

== ENCOUNTER → 2020-04-11 10:26 | Outpatient (CLI) | payer BC ==
[~2020-04-11 10:26] MED LIST changes: +DIFLUCAN150 MG PO; +IPRAT-ALBUT 0.5-3 ML INH; +MEDROL DOSE PACK4 MG PO; +SYMBICORT 16010.2 GM INH
== END | disposition home or self-care (01) ==
LOC: D.RAD 10:26
PROVIDERS: ATTEND Internal Medicine Pulmonary Disease
DX: J45.909 Unspecified asthma, uncomplicated (principal)

== ENCOUNTER → 2020-04-14 12:13 | Outpatient (CLI) | payer BC | END | disposition home or self-care (01) | LOC: D.LABREF 12:13 | PROVIDERS: ATTEND Internal Medicine Pulmonary Disease | DX: Z11.59 Encounter for screening for other viral diseases (principal) ==

== ENCOUNTER → 2020-04-15 10:27 | Outpatient (CLI) | payer BC ==
[2020-04-15 11:08] LABS: CREATININE - SERUM 0.8 mg/dL (0.6-1.3)
[2020-04-15 11:35] LABS: HEMATOCRIT 40.4 % (36.0-48.0); HEMOGLOBIN 12.7 g/dL (12-16); MCHC 31.4 g/dL (31.0-37.0); MCV 89.2 fL (80.0-100.0); MEAN PLATELET VOLUME 11.5 fL (7.4-10.4); PLATELET COUNT 180 10x3/uL (130-400); RBC 4.53 10x6/uL (4.00-5.40); RDW 12.9 % (11.5-14.5); WBC 2.5 10x3/uL (4.8-10.8)
[2020-04-15 14:43] LABS: BASOPHILS 1 % (0-2); EOSINOPHILS 4 % (0-7); LYMPHOCYTES 43 % (15-50); MONOCYTES 6 % (2-11); NEUTROPHILS 45 % (40-80); PLATELET ESTIMATE NORMAL
[2020-04-16 08:11] LABS: IMMUNOGLOBULIN A 140 mg/dL (87-352); IMMUNOGLOBULIN G 804 mg/dL (586-1602)
[2020-04-17 12:09] LABS: IMMUNOGLOBULIN E 36 IU/mL (6-495)
== END | disposition home or self-care (01) ==
LOC: D.CT 10:27
PROVIDERS: ATTEND Internal Medicine Pulmonary Disease
DX: J45.909 Unspecified asthma, uncomplicated (principal); R07.9 Chest pain, unspecified; J42 Unspecified chronic bronchitis; J43.9 Emphysema, unspecified

== ENCOUNTER 2020-07-07 11:18 | Emergency (ER) | payer BC ==
[~2020-07-07] VITALS: Ht 154.9 cm; Wt 51.4 kg
[2020-07-07 11:44] VITALS: Ht 154.9 cm; Wt 51.4 kg
[2020-07-07 12:35] LABS: BASOPHILS 0.5 % (0-2); EOSINOPHILS 1.6 % (0-7); HEMATOCRIT 40.7 % (36.0-48.0); HEMOGLOBIN 12.9 g/dL (12-16); IMMATURE GRANULOCYTES 0.7 % (0-5); LYMPHOCYTES 28.5 % (15-50); MCH 27.2 pg (26.0-34.0); MCHC 31.7 g/dL (31.0-37.0); MCV 85.7 fL (80.0-100.0); MEAN PLATELET VOLUME 11.8 fL (7.4-10.4); MONOCYTES 9.5 % (2-11); NEUTROPHILS 59.2 % (40-80); RBC 4.75 10x6/uL (4.00-5.40); RDW 12.5 % (11.5-14.5); WBC 8.6 10x3/uL (4.8-10.8)
[2020-07-07 12:46] LABS: CALC OSMOLALITY 280 mosm/kg (275-300); CALCIUM 9.8 mg/dL (8.5-10.1); CARBON DIOXIDE 25.4 mmol/L (21.0-32.0); CHLORIDE - SERUM 102 mmol/L (98-107); GLUCOSE 95 mg/dL (74-106); POTASSIUM - SERUM 3.7 mmol/L (3.5-5.1); SODIUM 140 mmol/L (136-145); UREA NITROGEN 18 mg/dL (7-18); eGFR NON AFRICAN AMERICAN 59 mL/min (90-120)
[2020-07-07 13:03] LABS: ALBUMIN 4.2 g/dL (3.4-5.0); ALKALINE PHOSPHATASE 71 U/L (30-120); ALT (SGPT) 21 U/L (10-68); CKMB 1.1 U/L (0.0-3.6); CREATINE KINASE 80 UL (21-215); PRO BNP 58 pg/mL (0-125); PROTEIN - SERUM 7.9 g/dL (6.4-8.2); TROPONIN-I < 0.017 ng/mL (0.000-0.060)
[2020-07-07 13:23] LABS: APTT 23.8 SECONDS (22.8-39.4)
[2020-07-07 13:24] LABS: D-DIMER-QUANTITATIVE < 0.27 ug/mLFEU (0.20-0.54)
[2020-07-07 13:27] LABS: PLATELET COUNT 246 10x3/uL (130-400)
[2020-07-07 13:29] LABS: INR 0.92 (0.85-1.17); PROTIME 12.3 SECONDS (11.6-15.0)
[2020-07-07 14:37] VITALS: BP 143/69
== END 2020-07-07 14:37 | disposition home or self-care (01) ==
LOC: D.ER 11:18
PROVIDERS: Emergency Medicine
DX: R07.89 Other chest pain (principal); M79.622 Pain in left upper arm; J44.9 Chronic obstructive pulmonary disease, unspecified; K21.9 Gastro-esophageal reflux disease without esophagitis

== ENCOUNTER → 2020-08-28 11:19 | Outpatient (CLI) | payer BC ==
[2020-07-07 11:44] VITALS: BMI 21.4
== END | disposition home or self-care (01) ==
LOC: D.RAD 11:19
PROVIDERS: ATTEND Internal Medicine Pulmonary Disease
DX: J44.9 Chronic obstructive pulmonary disease, unspecified (principal)

== ENCOUNTER → 2021-04-10 13:20 | Outpatient (CLI) | payer MEDICAID ==
[2020-12-11 17:05] VITALS: BMI 21.7
[~2021-04-10 13:20] MED LIST changes: +ANORO ELLIPTA1 EACH INH; +ARNUITY ELLIP200 MCG INH
== END | disposition home or self-care (01) ==
LOC: D.LAB 13:20
PROVIDERS: ATTEND Internal Medicine Pulmonary Disease
DX: J45.909 Unspecified asthma, uncomplicated (principal)

== ENCOUNTER → 2021-04-15 07:59 | Outpatient (CLI) | payer MEDICAID ==
[2020-12-11 17:05] VITALS: BMI 21.7
== END | disposition home or self-care (01) ==
LOC: D.RT 07:59
PROVIDERS: ATTEND Internal Medicine Pulmonary Disease
DX: J45.909 Unspecified asthma, uncomplicated (principal)

== ENCOUNTER 2021-04-17 16:00 | Outpatient (CLI) | payer BC ==
[2020-12-11 17:05] VITALS: BMI 21.7
== END 2021-04-17 23:59 | disposition home or self-care (01) ==
LOC: D.MAMMO 16:00
PROVIDERS: ATTEND Family Medicine
DX: Z12.31 Encounter for screening mammogram for malignant neoplasm of breast (principal)